=== PATIENT | male | born 1940 | race Caucasian/White ===

== ENCOUNTER 2017-09-15 16:25 | Emergency (ER) | payer MEDICARE, OTHER ==
[~2017-09-15] VITALS: Ht 170.2 cm; Wt 108.9 kg
[2017-09-15] MEDS ORDERED: GLYBURIDE (17:20)
[2017-09-15] MEDS ORDERED: METFORMIN (17:20)
[2017-09-15] MEDS ORDERED: TRIA50 PO (17:20)
[2017-09-15] MEDS ORDERED: COUMADIN (17:20)
[2017-09-15] MEDS ORDERED: BYSTOLIC (17:20)
[2017-09-15] MEDS ORDERED: RAPIFLOW (17:21)
[2017-09-15] MEDS ORDERED: Norco 5-325 Ta1 EACH PO (17:30)
== END 2017-09-15 17:41 | disposition home or self-care (01) ==
LOC: ER 16:25
DX: S42.211A Unspecified displaced fracture of surgical neck of right humerus, initial encounter for closed fracture (principal); Z79.84 Long term (current) use of oral hypoglycemic drugs; Z79.01 Long term (current) use of anticoagulants; Z79.899 Other long term (current) drug therapy; W19.XXXA Unspecified fall, initial encounter
CPT/HCPCS: 70450; 73030; 96374; 96375; 99284-25; J2405; J3010